=== PATIENT | female | born 1950 | race Two or more races ===

== ENCOUNTER 2021-04-08 08:41 | Outpatient (CLI) | payer OTHER | END 2021-04-08 08:49 | disposition home or self-care (01) | LOC: LAB 08:41 | PROVIDERS: ATTEND Radiology Diagnostic Radiology | DX: K80.20 Calculus of gallbladder without cholecystitis without obstruction (principal) ==

== ENCOUNTER 2021-04-11 07:15 | Outpatient (CLI) | payer OTHER | END 2021-04-11 07:25 | disposition home or self-care (01) | LOC: MRI 07:15 | DX: K86.89 Other specified diseases of pancreas (principal) | CPT/HCPCS: 74181; 74183 ==

== ENCOUNTER 2021-07-31 08:00 | Outpatient (CLI) | payer OTHER | END 2021-07-31 08:30 | disposition home or self-care (01) | LOC: PPH VACUNA 08:00 | PROVIDERS: ATTEND Emergency Medicine Pediatric Emergency Medicine | DX: Z23 Encounter for immunization (principal) ==